=== PATIENT | male | born 1950 | race American Indian/Alaskan Native ===

== ENCOUNTER 2022-12-02 09:19 | Emergency (ER) | payer OTHER, MEDICARE ==
[~2022-12-02] VITALS: Ht 180.3 cm; Wt 120.0 kg
[2022-12-02 09:38] VITALS: TEMP 97.8
[2022-12-02 11:44] VITALS: BP 133/76; PULSE 63; O2SAT 97
[2022-12-02 11:46] VITALS: RESP 18
[2022-12-02] MEDS ORDERED: oxyCODONE/APAP 5-325mg tablet PO ONE (13:05)
[2022-12-02 13:35] LABS: BASOPHILS # (AUTO) 0.1 X10'3 (0-0.2); BASOPHILS % (AUTO) 0.6 % (0-1); EOSINOPHILS # (AUTO) 0.3 X10'3 (0-0.9); EOSINOPHILS % (AUTO) 3.1 % (0-6); HEMATOCRIT 41.9 % (42.0-52.0); HEMOGLOBIN 13.9 g/dl (14.0-17.9); LYMPHOCYTES # (AUTO) 1.5 X10'3 (1.1-4.8); MEAN CORPUSCULAR HEMOGLOBIN 29.8 PG (27.0-31.0); MEAN CORPUSCULAR HGB CONC 33.1 g/dL (33.0-36.5); MEAN CORPUSCULAR VOLUME 90.2 FL (78-98); MEAN PLATELET VOLUME 8.4 FL (7.4-10.4); MONOCYTES # (AUTO) 0.9 X10'3 (0-0.9); MONOCYTES % (AUTO) 8.5 % (2-12); NEUTROPHILS # (AUTO) 7.4 X10'3 (1.8-7.7); NEUTROPHILS % (AUTO) 72.8 % (42-75); PLATELET COUNT 233 X10'3 (140-440); RED BLOOD COUNT 4.64 X10'6 (4.70-6.10); RED CELL DISTRIBUTION WIDTH 14.1 % (11.5-14.5); WHITE BLOOD COUNT 10.2 X10'3 (4.5-11.0)
[2022-12-02 13:50] LABS: ALANINE AMINOTRANSFERASE 16 U/L (12-78); ALBUMIN/GLOBULIN RATIO 0.6 (1.1-1.5); ALKALINE PHOSPHATASE 73 IU/L (46-116); ANION GAP 10 (8-16); ASPARTATE AMINO TRANSFERASE 18 U/L (10-37); BILIRUBIN,TOTAL 0.5 MG/DL (0.1-1.0); BLOOD UREA NITROGEN 24 MG/DL (7-18); BUN/CREATININE RATIO 24.7 (10.0-20.0); CALCIUM 8.7 MG/DL (8.5-10.1); CHLORIDE 102 MMOL/L (99-107); CREATININE 0.97 MG/DL (0.60-1.10); GLUCOSE 133 MG/DL (70-104); POTASSIUM 3.2 MMOL/L (3.5-5.1); SODIUM 137 MMOL/L (135-145); TOTAL CARBON DIOXIDE 24.9 MMOL/L (24-32); TOTAL PROTEIN 7.9 G/DL (6.4-8.2); eCRCL 74 ML/MIN; eGFR 76 ML/MIN
[2022-12-02] MEDS ORDERED: potassium Cl 20 mEq SR tablet PO STA (13:53)
--- NOTE | 2022-12-02 14:33 | NUR ---
To/from [place] without incident.
[2022-12-03] MEDS ORDERED: OXYC-134 PO (09:47)
== END 2022-12-02 15:15 | disposition home or self-care (01) ==
LOC: ER 09:20
DX: S22.41XA Multiple fractures of ribs, right side, initial encounter for closed fracture (principal); E78.00 Pure hypercholesterolemia, unspecified; I10 Essential (primary) hypertension; E11.9 Type 2 diabetes mellitus without complications; F12.90 Cannabis use, unspecified, uncomplicated; Z88.8 Allergy status to other drugs, medicaments and biological substances; W18.2XXA Fall in (into) shower or empty bathtub, initial encounter; Y93.89 Activity, other specified; Y92.89 Other specified places as the place of occurrence of the external cause; Y99.8 Other external cause status
CPT/HCPCS: 36415; 71101; 71250; 74176; 80053; 84145; 85025; 99284

== ENCOUNTER 2023-01-21 11:10 | Day surgery (SDC) | payer OTHER ==
[2023-01-19 16:50] LABS: BASOPHILS % (AUTO) 0.5 % (0-1); EOSINOPHILS # (AUTO) 0.1 X10'3 (0-0.9); EOSINOPHILS % (AUTO) 1.4 % (0-6); LYMPHOCYTES # (AUTO) 2.1 X10'3 (1.1-4.8); LYMPHOCYTES % (AUTO) 23.4 % (21-51); MEAN CORPUSCULAR HEMOGLOBIN 31.1 PG (27.0-31.0); MEAN CORPUSCULAR HGB CONC 33.8 g/dL (33.0-36.5); MEAN CORPUSCULAR VOLUME 91.9 FL (78-98); MEAN PLATELET VOLUME 8.9 FL (7.4-10.4); MONOCYTES # (AUTO) 0.9 X10'3 (0-0.9); MONOCYTES % (AUTO) 9.7 % (2-12); NEUTROPHILS # (AUTO) 5.8 X10'3 (1.8-7.7); PRE OP HEMATOCRIT 45.9 % (42.0-52.0); PRE OP HEMOGLOBIN 15.5 g/dL (14.0-17.9); PRE OP PLATELET COUNT 224 X10'3 (140-440); PRE OP WHITE BLOOD COUNT 8.9 10'3 (4.8-10.8)
[2023-01-19 17:02] LABS: ALBUMIN 3.4 G/DL (3.4-5.0); ALBUMIN/GLOBULIN RATIO 0.8 (1.1-1.5); ALKALINE PHOSPHATASE 90 IU/L (46-116); BLOOD UREA NITROGEN 8 MG/DL (7-18); BUN/CREATININE RATIO 8.4 (10.0-20.0); CALCIUM 8.9 MG/DL (8.5-10.1); CHLORIDE 101 MMOL/L (99-107); CREATININE 0.95 MG/DL (0.60-1.10); PRE OP ALT 22 U/L (30-65); PRE OP ANION GAP 8 (8-16); PRE OP AST 20 U/L (10-37); PRE OP BILIRUB, TOTAL 0.8 MG/DL (0.0-1.0); PRE OP GLUCOSE 117 MG/DL (70-104); PRE OP POTASSIUM 3.4 MMOL/L (3.4-5.1); PRE OP SODIUM 139 MMOL/L (135-145); TOTAL CARBON DIOXIDE 30.4 MMOL/L (24-32); TOTAL PROTEIN 7.9 G/DL (6.4-8.2); eGFR 78 ML/MIN
[2023-01-19 17:22] LABS: PRE OP INR 1.1 INR
[2023-01-19 17:24] LABS: PRE OP PROTIME 11.4 SECONDS (9.0-12.0)
[~2023-01-21] VITALS: Ht 182.9 cm; Wt 101.0 kg
[2023-01-21] VITALS (14 sets, daily range): BP systolic 103–151; BP diastolic 61–78; PULSE 60–85; RESP 13–16; TEMP 96.9; O2SAT 96–100
[~2023-01-21 11:10] MED LIST: ACET325T55 PO; ALLO100T25 PO; ATOR-2 PO; BUME2TAB7 PO; BUSP5TAB3 PO; CLOP75TA34 PO; DOCUMENT DATE & TIME OF BETA-BLOCKER PO ONE; EMPA1TAB7 PO; GABA300C PO; HYDR-3965 PO; INSU100V56 SQ; ISOS120T13 PO; LOSA-416 PO; METO200T49 PO; RIVA20TA PO; SEMA2PEN SUBCUT; SERT100T PO; cefazolin 2gm/D5W 100mL 100 ML IV ONE; famotidine 20mg tablet PO ONE; ringers solution, lacted 1,000 ML IV SCH
[2023-01-21] MEDS ORDERED: BUPIVAcaine 2.5mg/ml inj 50ml vial (contains preservative) ONE (11:56)
[2023-01-21] MEDS ORDERED: dextrose 50%-water 50ml dispensing syringe IV ONE (12:25)
[2023-01-21] MEDS ORDERED: ondansetron/PF 4mg/2ml inj IV PRN (12:45)
[2023-01-21] MEDS ORDERED: morphine 4 MG/ML inj SYRINge IV PRN (12:45)
[2023-01-21] MEDS ORDERED: ringers solution, lacted 1,000 ML IV SCH (12:45)
[2023-01-21] MEDS ORDERED: hydrALAZINE 20mg/ml inj. IV PRN (12:45)
[2023-01-21] MEDS ORDERED: morphine 2 MG/ML inj. syringe IV PRN (12:45)
[2023-01-21] MEDS ORDERED: sevoflurane 250ml liquid IH ONE (13:20)
[2023-01-21] MEDS ORDERED: fentaNYL/PF 50MCG/1 ML 2ML syringe ONE (13:26)
[2023-01-21] MEDS ORDERED: ondansetron/PF 4mg/2ml inj ONE (13:31)
[2023-01-21] MEDS ORDERED: dexamethasone sod phosphate 4mg/ml inj. ONE (13:31)
[2023-01-21] MEDS ORDERED: LIDOcaine 2% (20mg/ml) 5ml vial ONE (13:39)
[2023-01-21] MEDS ORDERED: propofol inj 20 ML IV ONE (13:39)
[2023-01-21] MEDS ORDERED: vancomycin 1,000mg inj ONE (13:43)
[2023-01-21] MEDS ORDERED: BUPIVAcaine 2.5mg/ml inj 50ml vial (contains preservative) SQ ONE (13:51)
== END 2023-01-21 16:00 | disposition home or self-care (01) ==
LOC: PAS 11:10
PROVIDERS: ATTEND Orthopaedic Surgery Orthopaedic Trauma
DX: E11.69 Type 2 diabetes mellitus with other specified complication (principal); M86.8X7 Other osteomyelitis, ankle and foot; I10 Essential (primary) hypertension; F41.9 Anxiety disorder, unspecified; I48.20 Chronic atrial fibrillation, unspecified; M19.90 Unspecified osteoarthritis, unspecified site; E78.5 Hyperlipidemia, unspecified; I25.10 Atherosclerotic heart disease of native coronary artery without angina pectoris; G47.30 Sleep apnea, unspecified; E66.9 Obesity, unspecified; Z68.27 Body mass index [BMI] 27.0-27.9, adult; Z98.890 Other specified postprocedural states; Z95.1 Presence of aortocoronary bypass graft; Z79.4 Long term (current) use of insulin; Z79.02 Long term (current) use of antithrombotics/antiplatelets; Z86.73 Personal history of transient ischemic attack (TIA), and cerebral infarction without residual deficits; Z95.2 Presence of prosthetic heart valve; Z88.8 Allergy status to other drugs, medicaments and biological substances; Z79.899 Other long term (current) drug therapy
CPT/HCPCS: 28160; 36415; 80053; 82948; 85025; 85610; 93005; A6223; J0690; J1100; J2405; J2704; J3010; J3370; J3490; J7030; J7120; Z7506; Z7512; A4618; A6446; A6449; A7000